=== PATIENT | female | born 1970 | race Caucasian/White ===

== ENCOUNTER 2021-03-08 20:09 | Emergency (ER) | payer OTHER ==
[2021-03-08] MEDS ORDERED: LODINE CAP 300300 MG PO (21:56)
== END 2021-03-08 22:30 | disposition home or self-care (01) ==
LOC: ER1 20:09
DX: S82.001A Unspecified fracture of right patella, initial encounter for closed fracture (principal); F17.210 Nicotine dependence, cigarettes, uncomplicated; Z23 Encounter for immunization; W19.XXXA Unspecified fall, initial encounter
CPT/HCPCS: 73562; 73700; 90471; 90715; 99284

== ENCOUNTER 2021-05-18 00:24 | Emergency (ER) | payer OTHER ==
[~2021-05-18 00:24] MED LIST: LODINE CAP 300300 MG PO
== END 2021-05-18 04:00 | disposition home or self-care (01) ==
LOC: ER1 00:24
DX: R06.02 Shortness of breath (principal); R05 Cough; F17.200 Nicotine dependence, unspecified, uncomplicated; Z20.822 Contact with and (suspected) exposure to COVID-19
CPT/HCPCS: 71045; 99285; U0002

== ENCOUNTER 2021-11-20 08:07 | Inpatient (IN) | payer OTHER ==
[~2021-11-20] VITALS: Ht 167.6 cm; Wt 65.8 kg
[2021-11-20 08:58] LABS: HEMOGLOBIN 10.4 gm/dl (12.3-15.3); RED BLOOD COUNT 3.3 M/UL (4.00-5.10); WHITE BLOOD COUNT 14.3 K/UL (4.5-11.0)
[2021-11-20 09:18] LABS: BUN/CREATININE RATIO 25 (0-10)
[2021-11-20] MEDS ORDERED: IBUPROFEN200 MG PO (13:36)
[2021-11-20] MEDS ORDERED: PROTONIX 40 MG40 M1 PO (13:36)
[2021-11-20] MEDS ORDERED: BACTRIM DS TAB1 EACH PO (13:37)
[2021-11-21 00:23] LABS: CANDIDA ALBICANS Not Detected (Negative); CANDIDA KRUSEI Not Detected (Negative); CANDIDA TROPICALIS Not Detected (Negative); HAEMOPHILUS INFLUENZAE Not Detected (Negative); KLEBSIELLA OXYTOCA Not Detected (Negative); KLEBSIELLA PNEUMONIAE Not Detected (Negative); KPC-CARBAPENEM-RESISTANCE GENE Not Detected (Negative); PROTEUS Not Detected (Negative); PSEUDOMONAS AERUGINOSA Not Detected (Negative); SERRATIA MARCESANS Not Detected (Negative); STAPHYLOCOCCUS Not Detected (Negative); STAPHYLOCOCCUS AUREUS Not Detected (Negative); STREP AGALACTIAE (GROUP B) Not Detected (Negative); STREP PYOGENES (GROUP A) Not Detected (Negative); STREPTOCOCCUS Not Detected (Negative); vanA/B (VANCOMYCIN RESIST GENE Not Detected (Negative)
[2021-11-21 01:43] LABS: ESCHERICHIA COLI DETECTED (Negative)
[2021-11-21 04:04] LABS: HEMOGLOBIN 9.3 gm/dl (12.3-15.3); RED BLOOD COUNT 2.99 M/UL (4.00-5.10)
[2021-11-21 04:07] LABS: WHITE BLOOD COUNT 9.7 K/UL (4.5-11.0)
[2021-11-21 04:27] LABS: BUN/CREATININE RATIO 19 (0-10)
[2021-11-22 02:41] LABS: HEMOGLOBIN 9.1 gm/dl (12.3-15.3); RED BLOOD COUNT 2.95 M/UL (4.00-5.10); WHITE BLOOD COUNT 6.1 K/UL (4.5-11.0)
[2021-11-22 03:12] LABS: BUN/CREATININE RATIO 18 (0-10)
[2021-11-23 03:41] LABS: HEMOGLOBIN 8.9 gm/dl (12.3-15.3); RED BLOOD COUNT 2.9 M/UL (4.00-5.10)
[2021-11-23 04:06] LABS: BUN/CREATININE RATIO 10 (0-10)
[2021-11-23] MEDS ORDERED: ROCEPHIN IM/I2000 MG IM ×3 (12:23→12:49)
[2021-11-23] MEDS ORDERED: K-TAB ER20 MEQ PO (18:03)
== END 2021-11-23 18:53 | disposition home or self-care (01) | DRG 872 ==
LOC: ER1 08:07 → M/S 11:54 → CDU 11:54 → M/S 14:31
PROVIDERS: Physician Assistant; ADMIT Internal Medicine
DX: A41.51 Sepsis due to Escherichia coli [E. coli] (principal); N10 Acute pyelonephritis; F19.10 Other psychoactive substance abuse, uncomplicated; E87.6 Hypokalemia; Z20.822 Contact with and (suspected) exposure to COVID-19; E27.9 Disorder of adrenal gland, unspecified; D50.9 Iron deficiency anemia, unspecified; F10.10 Alcohol abuse, uncomplicated; K21.9 Gastro-esophageal reflux disease without esophagitis; R65.20 Severe sepsis without septic shock; Z98.84 Bariatric surgery status; Z90.49 Acquired absence of other specified parts of digestive tract; Z98.891 History of uterine scar from previous surgery; Z68.23 Body mass index [BMI] 23.0-23.9, adult
CPT/HCPCS: 0240U; 36415; 71045; 80048; 80053; 81001; 83605; 83735; 85025; 87040; 87077; 87086; 87150; 87186; 94640; 94664; 94760; 96374; 96375; 99285; J0696; J1885; J2543; J7030; Q9967

== ENCOUNTER → 2021-11-24 | Outpatient (CLI) | payer OTHER ==
[~2021-11-24] VITALS: Ht 167.6 cm; Wt 65.8 kg
[~2021-11-24] MED LIST changes: +BACTRIM DS TAB1 EACH PO; +IBUPROFEN200 MG PO; +K-TAB ER20 MEQ PO; +PROTONIX 40 MG40 M1 PO; +ROCEPHIN IM/I2000 MG IM
== END ==
LOC: OPSV 07:00
DX: N39.0 Urinary tract infection, site not specified (principal); B96.20 Unspecified Escherichia coli [E. coli] as the cause of diseases classified elsewhere; R78.81 Bacteremia
CPT/HCPCS: 96372; J0696

== ENCOUNTER → 2021-11-25 | Outpatient (CLI) | payer OTHER ==
[~2021-11-25] VITALS: Ht 167.6 cm; Wt 65.8 kg
== END ==
LOC: OPSV 06:18
DX: N39.0 Urinary tract infection, site not specified (principal); B96.20 Unspecified Escherichia coli [E. coli] as the cause of diseases classified elsewhere; R78.81 Bacteremia
CPT/HCPCS: 96372; J0696; J7120

== ENCOUNTER → 2021-11-26 | Outpatient (CLI) | payer OTHER ==
[~2021-11-26] VITALS: Ht 167.6 cm; Wt 65.8 kg
== END ==
LOC: OPSV 06:52
DX: N39.0 Urinary tract infection, site not specified (principal); R78.81 Bacteremia; B96.20 Unspecified Escherichia coli [E. coli] as the cause of diseases classified elsewhere
CPT/HCPCS: 96372; J0696

== ENCOUNTER → 2021-11-27 | Outpatient (CLI) | payer OTHER | LOC: OPSV 06:46 → EROP 06:46 → OPSV 07:00 | DX: N39.0 Urinary tract infection, site not specified (principal); B96.20 Unspecified Escherichia coli [E. coli] as the cause of diseases classified elsewhere; R78.81 Bacteremia | CPT/HCPCS: 96372; J0696 ==

== ENCOUNTER → 2021-11-28 | Outpatient (CLI) | payer OTHER | LOC: OPSV 07:00 → EROP 07:17 | DX: N39.0 Urinary tract infection, site not specified (principal); R78.81 Bacteremia; B96.20 Unspecified Escherichia coli [E. coli] as the cause of diseases classified elsewhere | CPT/HCPCS: 96372; J0696 ==

== ENCOUNTER → 2021-11-29 | Outpatient (CLI) | payer OTHER ==
[~2021-11-29] VITALS: Ht 167.6 cm; Wt 65.8 kg
== END ==
LOC: OPSV 06:55
DX: N39.0 Urinary tract infection, site not specified (principal); R78.81 Bacteremia; B96.20 Unspecified Escherichia coli [E. coli] as the cause of diseases classified elsewhere
CPT/HCPCS: 96372; J0696

== ENCOUNTER → 2021-11-30 | Outpatient (CLI) | payer OTHER ==
[~2021-11-30] VITALS: Ht 167.6 cm; Wt 65.8 kg
== END ==
LOC: OPSV 07:00
DX: N39.0 Urinary tract infection, site not specified (principal); B96.20 Unspecified Escherichia coli [E. coli] as the cause of diseases classified elsewhere; R78.81 Bacteremia
CPT/HCPCS: 96372; J0696

== ENCOUNTER → 2021-12-03 | Outpatient (CLI) | payer OTHER ==
[~2021-12-03] MED LIST changes: +PREDNISONE 20 M20 MG PO; +PROVENTIL HFA6.7 GM INH
== END ==
LOC: OPSV 07:00
DX: N39.0 Urinary tract infection, site not specified (principal); B96.20 Unspecified Escherichia coli [E. coli] as the cause of diseases classified elsewhere; R78.81 Bacteremia
CPT/HCPCS: 96372

== ENCOUNTER → 2021-12-06 | Outpatient (CLI) | payer OTHER ==
[~2021-12-06] VITALS: Ht 167.6 cm; Wt 65.8 kg
== END ==
LOC: OPSV 07:00
DX: N39.0 Urinary tract infection, site not specified (principal); R78.81 Bacteremia; B96.20 Unspecified Escherichia coli [E. coli] as the cause of diseases classified elsewhere
CPT/HCPCS: 96372; J0696

== ENCOUNTER 2022-03-11 06:46 | Emergency (ER) | payer OTHER | END 2022-03-11 07:50 | disposition left against medical advice (07) | LOC: ER1 06:46 | DX: S30.1XXA Contusion of abdominal wall, initial encounter (principal); F17.200 Nicotine dependence, unspecified, uncomplicated; V86.99XA Unspecified occupant of other special all-terrain or other off-road motor vehicle injured in nontraffic accident, initial encounter | CPT/HCPCS: 71045; 99283; Q9967 ==